=== PATIENT | female | born 1955 | race Two or more races ===

== ENCOUNTER 2016-11-24 08:40 | Emergency (ER) | payer BC, OTHER ==
[~2016-11-24] VITALS: Ht 157.5 cm; Wt 74.8 kg
--- NOTE | 2016-11-24 09:07 | NUR ---
pt is in room #2a. dr murry evaluated the pt.
[2016-11-24] MEDS ORDERED: GUAIFENESIN/CODEINE 5 ML LIQUID UDC PO ONE (09:45)
[2016-11-24] MEDS ORDERED: predniSONE 20 MG TABLET PO ONE (09:45)
[2016-11-24] MEDS ORDERED: predniSONE 20 MG TABLET ONE (09:54)
[2016-11-24] MEDS ORDERED: GUAIFENESIN/CODEINE 5 ML LIQUID UDC ONE (09:55)
[2016-11-24 10:20] VITALS: BP 136/75
--- NOTE | 2016-11-24 10:20 | NUR ---
pt was d/c to home. d/c instructions given tot he pt.
== END 2016-11-24 10:21 | disposition home or self-care (01) ==
LOC: ER 08:40
DX: J40 Bronchitis, not specified as acute or chronic (principal); J02.9 Acute pharyngitis, unspecified; I10 Essential (primary) hypertension; K21.9 Gastro-esophageal reflux disease without esophagitis; E03.9 Hypothyroidism, unspecified
CPT/HCPCS: 36415; 71010; 86403; 87070; 99285; A4663; J7512

== ENCOUNTER 2017-01-08 11:13 | Outpatient (CLI) | payer BC, OTHER ==
[2017-01-08 12:00] LABS: BASOPHILS # (AUTO) 0.1 K/uL (0.0-8.0); BASOPHILS % (AUTO) 0.8 % (0.0-2.0); EOSINOPHILS # (AUTO) 0.6 K/uL (0.0-0.7); EOSINOPHILS % (AUTO) 7.2 % (0.0-7.0); HEMOGLOBIN 13.3 G/DL (12.0-16.0); LYMPHOCYTES # (AUTO) 2.4 K/UL (0.8-4.8); LYMPHOCYTES % (AUTO) 30.8 % (20.5-51.5); MEAN CORPUSCULAR HEMOGLOBIN 27.8 UUG (27.0-31.0); MEAN CORPUSCULAR HGB CONC 32 g/dL (32.0-37.0); MONOCYTES # (AUTO) 0.4 K/UL (0.1-1.30); MONOCYTES % (AUTO) 4.7 % (0.0-11.0); NEUTROPHILS # (AUTO) 4.2 K/UL (1.8-8.9); NEUTROPHILS % (AUTO) 56.5 % (38.5-71.5); PLATELET COUNT (AUTO) 157 K/UL (150-450); RED BLOOD CELL COUNT(AUTO) 4.77 MIL/UL (4.2-5.4); WHITE BLOOD COUNT (AUTO) 7.7 K/UL (4.0-11.2)
[2017-01-08 12:15] LABS: CREATININE 0.8 mg/dL (0.6-1.3); POTASSIUM 3.8 mmol/L (3.5-5.1)
== END 2017-01-08 23:59 | disposition home or self-care (01) ==
LOC: XRAY 11:13
DX: R05 Cough (principal); L65.9 Nonscarring hair loss, unspecified
CPT/HCPCS: 36415; 71020; 83550; 85025

== ENCOUNTER 2017-03-09 09:00 | Outpatient (CLI) | payer BC, OTHER ==
[2017-03-09 10:29] LABS: BILIRUBIN,TOTAL 0.4 mg/dL (0.2-1.0); CREATININE 0.8 mg/dL (0.6-1.3); POTASSIUM 3.9 mmol/L (3.5-5.1); TOTAL PROTEIN, SERUM 8.1 g/dL (6.4-8.2)
[2017-03-09 10:39] LABS: THYROID STIMULATING HORMONE 2.784 mIU/mL (0.358-3.740)
[2017-03-10 08:10] LABS: CORTISOL 7.8 ug/dL (.)
[2017-03-10 13:12] LABS: INSULIN 13.3 uIU/mL (2.6-24.9)
== END 2017-03-09 23:59 | disposition home or self-care (01) ==
LOC: LAB 09:00
PROVIDERS: ATTEND Internal Medicine
DX: E03.9 Hypothyroidism, unspecified (principal); E11.9 Type 2 diabetes mellitus without complications; R53.83 Other fatigue
CPT/HCPCS: 36415; 82533; 83525; 84443

== ENCOUNTER 2017-08-26 07:08 | Outpatient (CLI) | payer BC, OTHER ==
[2017-08-26 08:31] LABS: BASOPHILS # (AUTO) 0.1 K/uL (0.0-8.0); BASOPHILS % (AUTO) 0.9 % (0.0-2.0); EOSINOPHILS # (AUTO) 0.2 K/uL (0.0-0.7); EOSINOPHILS % (AUTO) 3.5 % (0.0-7.0); HEMATOCRIT 42.1 % (31.2-41.9); HEMOGLOBIN 13.9 g/dL (10.9-14.3); LYMPHOCYTES # (AUTO) 2.1 K/uL (20.0-40.0); LYMPHOCYTES % (AUTO) 33.4 % (20.5-51.5); MEAN CORPUSCULAR HEMOGLOBIN 28.6 uug (24.7-32.8); MEAN CORPUSCULAR HGB CONC 33 g/dL (32.3-35.6); MEAN CORPUSCULAR VOLUME 86.6 fL (75.5-95.3); MONOCYTES # (AUTO) 0.3 K/uL (2.0-10.0); MONOCYTES % (AUTO) 5.6 % (0.0-11.0); NEUTROPHILS # (AUTO) 3.5 K/uL (1.8-8.9); NEUTROPHILS % (AUTO) 56.6 % (38.5-71.5); PLATELET COUNT (AUTO) 164 K/uL (179-408); RED BLOOD CELL COUNT(AUTO) 4.86 MIL/uL (3.63-4.92); WHITE BLOOD COUNT (AUTO) 6.2 K/uL (3.8-11.8)
[2017-08-26 08:56] LABS: BILIRUBIN,TOTAL 0.7 mg/dL (0.2-1.0); CREATININE 0.8 mg/dL (0.6-1.3); POTASSIUM 3.7 mmol/L (3.5-5.1); TOTAL PROTEIN, SERUM 8.1 g/dL (6.4-8.2); URIC ACID 4.6 mg/dL (2.6-6.0)
[2017-08-26 09:35] LABS: THYROID STIMULATING HORMONE 1.939 mIU/mL (0.358-3.740)
[2017-08-27 11:08] LABS: HEPATITIS B SURFACE AG Negative (Negative)
[2017-08-27 13:09] LABS: C-PEPTIDE, SERUM 3.1 ng/mL (1.1-4.4); VIT D, 25-HYDROXY 20.4 ng/mL (30.0-100.0)
== END 2017-08-26 23:59 | disposition home or self-care (01) ==
LOC: LAB 07:08
DX: M25.521 Pain in right elbow (principal); M25.541 Pain in joints of right hand
CPT/HCPCS: 36415; 82306; 84443; 84550; 84681; 85025; 85651; 86038; 86803; 87340

== ENCOUNTER → 2018-01-15 | Outpatient (CLI) | payer BC, OTHER ==
[2018-01-15 15:25] LABS: BASOPHILS # (AUTO) 0.1 K/uL (0.0-8.0); BASOPHILS % (AUTO) 0.8 % (0.0-2.0); EOSINOPHILS # (AUTO) 0.3 K/uL (0.0-0.7); EOSINOPHILS % (AUTO) 3.9 % (0.0-7.0); HEMATOCRIT 39.7 % (31.2-41.9); HEMOGLOBIN 13.2 g/dL (10.9-14.3); LYMPHOCYTES # (AUTO) 2.4 K/uL (20.0-40.0); LYMPHOCYTES % (AUTO) 29.9 % (20.5-51.5); MEAN CORPUSCULAR HEMOGLOBIN 28.7 uug (24.7-32.8); MEAN CORPUSCULAR HGB CONC 33 g/dL (32.3-35.6); MEAN CORPUSCULAR VOLUME 86.4 fL (75.5-95.3); MONOCYTES # (AUTO) 0.4 K/uL (2.0-10.0); MONOCYTES % (AUTO) 4.6 % (0.0-11.0); NEUTROPHILS # (AUTO) 4.9 K/uL (1.8-8.9); NEUTROPHILS % (AUTO) 60.8 % (38.5-71.5); PLATELET COUNT (AUTO) 171 K/uL (179-408); WHITE BLOOD COUNT (AUTO) 8.1 K/uL (3.8-11.8)
[2018-01-15 21:54] LABS: *RHEUMATOID FACTOR SCREEN NEGATIVE (NEGATIVE)
[2018-01-17 05:05] LABS: HEPATITIS B SURFACE AG Negative (Negative)
== END | disposition home or self-care (01) ==
LOC: LAB 14:29
DX: M19.90 Unspecified osteoarthritis, unspecified site (principal)
CPT/HCPCS: 36415; 85025; 85651; 86038; 86140; 86430; 87340

== ENCOUNTER 2018-01-23 08:30 | Emergency (ER) | payer BC, OTHER ==
[~2018-01-23] VITALS: Ht 154.9 cm; Wt 81.6 kg
[2018-01-23] MEDS ORDERED: LISINOPRIL (08:37)
[2018-01-23] MEDS ORDERED: AMLODIPINE (08:37)
--- NOTE | 2018-01-23 08:40 | NUR ---
ADMIT PT IN RM 2A FROM HOME WITH C/O DIZZINESS. SEEN AND EXAMINED BY DR CARSON WITH NEW ORDERS. ORTHOSTATIC BP DONE.
[2018-01-23] MEDS ORDERED: MECLIZINE HCL 25 MG TABLET PO ONE (08:45)
--- NOTE | 2018-01-23 08:45 | NUR ---
EKG DONE AT THE BEDSIDE ORDERED ALL LABS DRAWN. AND CT SCAN OF HEAD ORDERED.
[2018-01-23 08:55] LABS: BASOPHILS # (AUTO) 0.1 K/uL (0.0-8.0); BASOPHILS % (AUTO) 0.2 % (0.0-2.0); EOSINOPHILS % (AUTO) 0.1 % (0.0-7.0); HEMATOCRIT 39.2 % (31.2-41.9); HEMOGLOBIN 13.1 g/dL (10.9-14.3); LYMPHOCYTES # (AUTO) 1.2 K/uL (20.0-40.0); LYMPHOCYTES % (AUTO) 5.4 % (20.5-51.5); MEAN CORPUSCULAR HEMOGLOBIN 29.3 uug (24.7-32.8); MEAN CORPUSCULAR HGB CONC 33 g/dL (32.3-35.6); MONOCYTES # (AUTO) 0.5 K/uL (2.0-10.0); MONOCYTES % (AUTO) 2.3 % (0.0-11.0); NEUTROPHILS # (AUTO) 20.4 K/uL (1.8-8.9); PLATELET COUNT (AUTO) 178 K/uL (179-408); RED BLOOD CELL COUNT(AUTO) 4.46 MIL/uL (3.63-4.92); WHITE BLOOD COUNT (AUTO) 22.1 K/uL (3.8-11.8)
[2018-01-23 09:03] LABS: POTASSIUM 4.1 mmol/L (3.5-5.1)
[2018-01-23 09:08] LABS: BILIRUBIN,DIRECT 0.2 mg/dL (0.0-0.2); BILIRUBIN,TOTAL 0.9 mg/dL (0.2-1.0)
--- NOTE | 2018-01-23 09:15 | NUR ---
PT MEDICATED WITH ANTIVERT 25MG PO ORDERED. STILL A LITTLE BIT DIZZY.
[2018-01-23] MEDS ORDERED: MECLIZINE HCL 25 MG TABLET ONE (09:27)
[2018-01-23] MEDS ORDERED: predniSONE 50 MG TABLET PO ONE (10:30)
[2018-01-23] MEDS ORDERED: HYDROCODONE/APAP 5-325MG TABLET PO ONE (10:30)
--- NOTE | 2018-01-23 10:30 | NUR ---
Medicated with Norco5/325 i tab po for mild headache as ordered and Prednisone 50mg po per MD order.
[2018-01-23] MEDS ORDERED: HYDROCODONE/APAP 5-325MG TABLET ONE (10:39)
[2018-01-23] MEDS ORDERED: predniSONE 50 MG TABLET ONE (10:40)
[2018-01-23] MEDS ORDERED: IV NORMAL SALINE 1000 ML BAG IV ONE (12:00)
--- NOTE | 2018-01-23 12:05 | NUR ---
STARTED IV LINE ON THE LEFT BIG FINGER OF THE HAND G22. 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 SOMEWHAT DIFFICULT VEINS ON THE RIGHT ARM. STARTED IVF NS MD ORDERED.
[2018-01-23] MEDS ORDERED: IOHEXOL 350 100 ML INFUS..BTL ONE (12:18)
[2018-01-23] MEDS ORDERED: IV NORMAL SALINE 100 ML ONE (12:19)
[2018-01-23] MEDS ORDERED: SWABABLE VALVE TRANSFER SET EA MC ONE (12:19)
--- NOTE | 2018-01-23 12:30 | NUR ---
STARTED ANOTHER IV LINE ACCESS G20 ON THE [facility] FOR CTA WITH CONTRAST. DOWN FOR CT SCAN. CONDITION STABLE.
[2018-01-23] MEDS ORDERED: MORPHINE SULFATE 4 MG/1 ML DISP.SYRIN IV ONE (12:45)
[2018-01-23] MEDS ORDERED: ONDANSETRON IV *ER 4 MG/2 ML VIAL IV ONE (12:45)
--- NOTE | 2018-01-23 13:30 | NUR ---
PT BACK FRON CTA. STILL C/O BEY LEVEL 7 ON THE FRONTAL HEAD. MEDICATED WITH MORPHINE 4MG SLOW IVP AND FOLLOWED WITH ZOFRAN 4MG SLOW IVP FOR ANTI EMETIC. IVF IN PROGRESS.
[2018-01-23] MEDS ORDERED: MORPHINE SULFATE 4 MG/1 ML DISP.SYRIN ONE (13:33)
[2018-01-23] MEDS ORDERED: ONDANSETRON 4 MG/2 ML VIAL ONE (13:33)
--- NOTE | 2018-01-23 15:00 | NUR ---
PT IS SLEEPING COMFORTABLY AND RELIEVED OF BEY.
--- NOTE | 2018-01-23 16:20 | NUR ---
DISCHARGE INSTRUCTION GIVEN TO PT WITH GOOD UNDERSTANDING. IVF IS DISCONTINUED AND IV SITES ALSO REMOVED. CONDITION IS STABLE.
[2018-01-23 16:24] VITALS: BP 113/55
[2018-01-24 13:09] LABS: HEPATITIS A AB, TOTAL Positive (Negative); HEPATITIS B SURFACE AB Non Reactive (.); HEPATITIS B SURFACE AG Negative (Negative)
== END 2018-01-23 17:05 | disposition home or self-care (01) ==
LOC: ER 08:32
DX: R42 Dizziness and giddiness (principal); I10 Essential (primary) hypertension; K21.9 Gastro-esophageal reflux disease without esophagitis; E03.9 Hypothyroidism, unspecified; Z79.899 Other long term (current) drug therapy
CPT/HCPCS: 36415; 70030-TC; 70450; 70496; 85025; 85730; 86706; 86708; 86803; 87340; 93005; A4663; J2270; J2405; J3490; J7030; J7512; J8597; Q9967

== ENCOUNTER 2018-05-04 09:56 | Day surgery (SDC) | payer BC, OTHER ==
[~2018-05-04 09:56] MED LIST: AMLODIPINE; LISINOPRIL
[2018-05-04] MEDS ORDERED: LIDOCAINE HCL 2% 20 ML VIAL MC ONE (09:57)
[2018-05-04] MEDS ORDERED: PROPOFOL 200 MG/20 ML BOTTLE IV ONE (09:57)
[2018-05-04] MEDS ORDERED: IV LACTATED RINGERS SOLUTION 1,000 ML BAG IV ONE (09:57)
[2018-05-04 10:33] LABS: BASOPHILS # (AUTO) 0.1 K/uL (0.0-8.0); BASOPHILS % (AUTO) 1.2 % (0.0-2.0); EOSINOPHILS # (AUTO) 0.2 K/uL (0.0-0.7); EOSINOPHILS % (AUTO) 2.9 % (0.0-7.0); HEMATOCRIT 43.1 % (31.2-41.9); HEMOGLOBIN 14.2 g/dL (10.9-14.3); LYMPHOCYTES # (AUTO) 2.1 K/uL (20.0-40.0); LYMPHOCYTES % (AUTO) 26.6 % (20.5-51.5); MEAN CORPUSCULAR HEMOGLOBIN 28.7 uug (24.7-32.8); MEAN CORPUSCULAR HGB CONC 33 g/dL (32.3-35.6); MEAN CORPUSCULAR VOLUME 87.1 fL (75.5-95.3); MONOCYTES # (AUTO) 0.3 K/uL (2.0-10.0); MONOCYTES % (AUTO) 3.5 % (0.0-11.0); NEUTROPHILS # (AUTO) 5.1 K/uL (1.8-8.9); NEUTROPHILS % (AUTO) 65.8 % (38.5-71.5); PLATELET COUNT (AUTO) 185 K/uL (179-408); RED BLOOD CELL COUNT(AUTO) 4.95 MIL/uL (3.63-4.92); WHITE BLOOD COUNT (AUTO) 7.8 K/uL (3.8-11.8)
[2018-05-04 10:39] LABS: CREATININE 0.8 mg/dL (0.6-1.3); POTASSIUM 4.5 mmol/L (3.5-5.1)
[2018-05-04 10:43] LABS: *BILIRUBIN,URIN NEGATIVE (NEGATIVE); *BLOOD, URINE NEGATIVE (NEGATIVE); *CLARITY,URINE SLIGHTLY CLOUDY (CLEAR); *COLOR,URINE YELLOW (YELLOW); *KETONES,URINE NEGATIVE (NEGATIVE); *PROTEIN,URINE NEGATIVE (NEGATIVE); *UROBILINOGEN,URINE 0.2 E.U./dl (NORMAL); LEUKOCYTE ESTERASE ,URINE 1+ (NEGATIVE); NITRITE, URINE NEGATIVE (NEGATIVE); UGLUCOSE NEGATIVE (NEGATIVE)
[2018-05-04 10:47] LABS: BILIRUBIN,TOTAL 0.6 mg/dL (0.2-1.0); TOTAL PROTEIN, SERUM 8.3 g/dL (6.4-8.2)
[2018-05-04 10:52] LABS: BACTERIA,URINE NONE SEEN /HPF (NONE SEEN); SQUAMOUS EPITHELIAL CELL,UR MODERATE /HPF (NONE SEEN)
[2018-05-04 10:53] LABS: MUCUS,URINE MODERATE /LPF (0-FEW); TRANSITIONAL EPI CELLS,URINE FEW /LPF (NONE SEEN)
== END 2018-05-04 15:10 | disposition home or self-care (01) ==
LOC: DS 09:56
PROVIDERS: ATTEND Internal Medicine Gastroenterology
DX: K21.0 Gastro-esophageal reflux disease with esophagitis (principal); K44.9 Diaphragmatic hernia without obstruction or gangrene; Z80.0 Family history of malignant neoplasm of digestive organs; Z83.3 Family history of diabetes mellitus; Z82.49 Family history of ischemic heart disease and other diseases of the circulatory system; Z79.899 Other long term (current) drug therapy; E66.9 Obesity, unspecified; Z85.3 Personal history of malignant neoplasm of breast; Z98.890 Other specified postprocedural states; Z68.33 Body mass index [BMI] 33.0-33.9, adult; I10 Essential (primary) hypertension; E03.9 Hypothyroidism, unspecified
CPT/HCPCS: 36415; 71045; 85025; 85730; 88342; 93005; A4217; A4663; J3490; J7120

== ENCOUNTER 2018-10-20 06:49 | Outpatient (CLI) | payer BC, OTHER ==
[2018-10-20 09:54] LABS: BASOPHILS # (AUTO) 0.1 K/uL (0.0-8.0); BASOPHILS % (AUTO) 0.8 % (0.0-2.0); EOSINOPHILS # (AUTO) 0.2 K/uL (0.0-0.7); EOSINOPHILS % (AUTO) 2.7 % (0.0-7.0); HEMOGLOBIN 13.9 g/dL (10.9-14.3); LYMPHOCYTES # (AUTO) 2.2 K/uL (20.0-40.0); LYMPHOCYTES % (AUTO) 32.8 % (20.5-51.5); MEAN CORPUSCULAR HEMOGLOBIN 28.3 uug (24.7-32.8); MEAN CORPUSCULAR HGB CONC 33 g/dL (32.3-35.6); MEAN CORPUSCULAR VOLUME 85.7 fL (75.5-95.3); MONOCYTES # (AUTO) 0.3 K/uL (2.0-10.0); MONOCYTES % (AUTO) 4.2 % (0.0-11.0); NEUTROPHILS % (AUTO) 59.5 % (38.5-71.5); PLATELET COUNT (AUTO) 175 K/uL (179-408); WHITE BLOOD COUNT (AUTO) 6.7 K/uL (3.8-11.8)
[2018-10-20 10:00] LABS: BILIRUBIN,TOTAL 0.7 mg/dL (0.2-1.0); CREATININE 0.8 mg/dL (0.6-1.3); POTASSIUM 3.7 mmol/L (3.5-5.1); TOTAL PROTEIN, SERUM 8.1 g/dL (6.4-8.2)
[2018-10-20 10:04] LABS: *BILIRUBIN,URIN NEGATIVE (NEGATIVE); *BLOOD, URINE NEGATIVE (NEGATIVE); *CLARITY,URINE CLEAR (CLEAR); *COLOR,URINE YELLOW (YELLOW); *KETONES,URINE NEGATIVE (NEGATIVE); *UROBILINOGEN,URINE 0.2 E.U./dl (NORMAL); LEUKOCYTE ESTERASE ,URINE TRACE (NEGATIVE); NITRITE, URINE NEGATIVE (NEGATIVE); PH,URINE 5.5 (5.0-8.0); UGLUCOSE NEGATIVE (NEGATIVE)
[2018-10-20 10:08] LABS: THYROID STIMULATING HORMONE 2.539 mIU/mL (0.358-3.740)
[2018-10-20 10:32] LABS: RBC,URINE 0-3 /HPF (0-3)
[2018-10-20 10:33] LABS: BACTERIA,URINE FEW /HPF (NONE SEEN); MUCUS,URINE MODERATE /LPF (0-FEW); SQUAMOUS EPITHELIAL CELL,UR FEW /HPF (NONE SEEN)
== END 2018-10-20 23:59 | disposition home or self-care (01) ==
LOC: LAB 06:49
DX: I10 Essential (primary) hypertension (principal); E03.9 Hypothyroidism, unspecified
CPT/HCPCS: 84443; 85025; 86140; 87077; 87086

== ENCOUNTER 2019-01-05 08:52 | Emergency (ER) | payer BC, OTHER ==
[~2019-01-05] VITALS: Ht 154.9 cm; Wt 81.6 kg
--- NOTE | 2019-01-05 09:16 | NUR ---
PT WAS EVALUATED BY DR SINGH. PT WAS D/C'd TO HOME. D/C INSTRUCTIONS GIVEN TO THE PT.
[2019-01-05 09:19] VITALS: BP 132/78
== END 2019-01-05 09:20 | disposition home or self-care (01) ==
LOC: ER 08:52
DX: M79.644 Pain in right finger(s) (principal); I10 Essential (primary) hypertension; K21.9 Gastro-esophageal reflux disease without esophagitis; E03.9 Hypothyroidism, unspecified; Z91.040 Latex allergy status; Z79.899 Other long term (current) drug therapy
CPT/HCPCS: A4663

== ENCOUNTER 2019-04-05 06:55 | Outpatient (CLI) | payer BC, OTHER ==
[2019-04-05 09:17] LABS: BASOPHILS # (AUTO) 0.1 K/uL (0.0-8.0); BASOPHILS % (AUTO) 0.8 % (0.0-2.0); EOSINOPHILS # (AUTO) 0.3 K/uL (0.0-0.7); EOSINOPHILS % (AUTO) 4.1 % (0.0-7.0); HEMATOCRIT 44.2 % (31.2-41.9); HEMOGLOBIN 14.4 g/dL (10.9-14.3); LYMPHOCYTES # (AUTO) 2.4 K/uL (20.0-40.0); LYMPHOCYTES % (AUTO) 31.5 % (20.5-51.5); MEAN CORPUSCULAR HEMOGLOBIN 28.6 uug (24.7-32.8); MEAN CORPUSCULAR HGB CONC 33 g/dL (32.3-35.6); MEAN CORPUSCULAR VOLUME 88.1 fL (75.5-95.3); MONOCYTES # (AUTO) 0.4 K/uL (2.0-10.0); MONOCYTES % (AUTO) 5.3 % (0.0-11.0); NEUTROPHILS # (AUTO) 4.4 K/uL (1.8-8.9); NEUTROPHILS % (AUTO) 58.3 % (38.5-71.5); PLATELET COUNT (AUTO) 174 K/uL (179-408); RED BLOOD CELL COUNT(AUTO) 5.02 MIL/uL (3.63-4.92); WHITE BLOOD COUNT (AUTO) 7.5 K/uL (3.8-11.8)
[2019-04-05 09:39] LABS: BILIRUBIN,TOTAL 0.6 mg/dL (0.2-1.0); CREATININE 0.8 mg/dL (0.6-1.3); MAGNESIUM 2.1 mg/dL (1.8-2.4); POTASSIUM 3.9 mmol/L (3.5-5.1); TOTAL PROTEIN, SERUM 7.8 g/dL (6.4-8.2)
[2019-04-05 10:50] LABS: THYROID STIMULATING HORMONE 2.314 mIU/mL (0.358-3.740)
[2019-04-06 08:07] LABS: INSULIN 13.7 uIU/mL (2.6-24.9)
== END 2019-04-05 23:59 | disposition home or self-care (01) ==
LOC: LAB 06:55
DX: E03.9 Hypothyroidism, unspecified (principal); K21.9 Gastro-esophageal reflux disease without esophagitis; R51 Headache
CPT/HCPCS: 36415; 83525; 83550; 83735; 84443; 84480; 85025; 85651; 86140

== ENCOUNTER 2019-04-07 08:35 | Emergency (ER) | payer BC, OTHER ==
[~2019-04-07] VITALS: Ht 154.9 cm; Wt 81.6 kg
[2019-04-07] MEDS ORDERED: ASPIRIN EC 325 MG TABLET.DR PO SCH (09:00)
[2019-04-07] MEDS ORDERED: LISI-603 PO (09:07)
[2019-04-07] MEDS ORDERED: LEVOTHYROXINE (09:07)
[2019-04-07] MEDS ORDERED: AMLO10TA4 PO (09:07)
[2019-04-07 09:08] LABS: BASOPHILS # (AUTO) 0.1 K/uL (0.0-8.0); BASOPHILS % (AUTO) 0.8 % (0.0-2.0); EOSINOPHILS # (AUTO) 0.3 K/uL (0.0-0.7); EOSINOPHILS % (AUTO) 3.8 % (0.0-7.0); HEMATOCRIT 40.8 % (31.2-41.9); HEMOGLOBIN 13.4 g/dL (10.9-14.3); LYMPHOCYTES # (AUTO) 3.1 K/uL (20.0-40.0); MEAN CORPUSCULAR HEMOGLOBIN 28.9 uug (24.7-32.8); MEAN CORPUSCULAR HGB CONC 33 g/dL (32.3-35.6); MONOCYTES # (AUTO) 0.5 K/uL (2.0-10.0); MONOCYTES % (AUTO) 6.4 % (0.0-11.0); NEUTROPHILS # (AUTO) 4.4 K/uL (1.8-8.9); PLATELET COUNT (AUTO) 168 K/uL (179-408); RED BLOOD CELL COUNT(AUTO) 4.64 MIL/uL (3.63-4.92); WHITE BLOOD COUNT (AUTO) 8.4 K/uL (3.8-11.8)
[2019-04-07] MEDS ORDERED: ASPIRIN 81 MG TAB.CHEW ONE (09:11)
[2019-04-07 09:14] LABS: CREATININE 0.8 mg/dL (0.6-1.3); POTASSIUM 4.4 mmol/L (3.5-5.1)
--- NOTE | 2019-04-07 09:30 | NUR ---
PATIENT WAS SEEN BY MD. 12 LEAD EKG DONE. PT PLACED ON CONTINUOUS MONITOR. IV PLACED, LABS DRAWN
--- NOTE | 2019-04-07 10:09 | NUR ---
IV removed. Catheter intact and site benign. Pressure and 4x4 gauze applied to site. No bleeding noted.
--- NOTE | 2019-04-07 10:09 | NUR ---
DC AND FOLLOW UP INSTRUCTIONS GIVEN AND EXPLAINED TO PATIENT WHO STATES SHE UNDERSTANDS ALL INSTRUCTIONS INCLUDING MD RECOMENDED STRESS TEST.
== END 2019-04-07 10:10 | disposition home or self-care (01) ==
LOC: ER 08:35
DX: R07.9 Chest pain, unspecified (principal); I10 Essential (primary) hypertension; K21.9 Gastro-esophageal reflux disease without esophagitis; E03.9 Hypothyroidism, unspecified; E78.5 Hyperlipidemia, unspecified; Z91.040 Latex allergy status; Z79.899 Other long term (current) drug therapy
CPT/HCPCS: 36415; 70030-TC; 71045; 85025; 93005; A4663

== ENCOUNTER → 2020-03-09 | Outpatient (CLI) | payer BC, OTHER ==
[~2020-03-09] MED LIST changes: +AMLO10TA4 PO; -AMLODIPINE; +LEVOTHYROXINE; +LISI-603 PO; -LISINOPRIL
[2020-03-09 06:26] LABS: BASOPHILS # (AUTO) 0.1 K/uL (0.0-8.0); BASOPHILS % (AUTO) 0.8 % (0.0-2.0); EOSINOPHILS # (AUTO) 0.3 K/uL (0.0-0.7); EOSINOPHILS % (AUTO) 3.6 % (0.0-7.0); HEMOGLOBIN 14.8 g/dL (10.9-14.3); LYMPHOCYTES # (AUTO) 2.2 K/uL (20.0-40.0); LYMPHOCYTES % (AUTO) 28.8 % (20.5-51.5); MEAN CORPUSCULAR HEMOGLOBIN 28.3 uug (24.7-32.8); MEAN CORPUSCULAR HGB CONC 33 g/dL (32.3-35.6); MEAN CORPUSCULAR VOLUME 86.1 fL (75.5-95.3); MONOCYTES # (AUTO) 0.4 K/uL (2.0-10.0); MONOCYTES % (AUTO) 4.7 % (0.0-11.0); NEUTROPHILS # (AUTO) 4.8 K/uL (1.8-8.9); NEUTROPHILS % (AUTO) 62.1 % (38.5-71.5); PLATELET COUNT (AUTO) 174 K/uL (179-408); RED BLOOD CELL COUNT(AUTO) 5.22 MIL/uL (3.63-4.92); WHITE BLOOD COUNT (AUTO) 7.7 K/uL (3.8-11.8)
[2020-03-09 06:44] LABS: THYROID STIMULATING HORMONE 2.229 mIU/mL (0.358-3.740)
[2020-03-09 06:48] LABS: BILIRUBIN,TOTAL 0.8 mg/dL (0.2-1.0); CREATININE 0.9 mg/dL (0.6-1.3); MAGNESIUM 2.1 mg/dL (1.8-2.4); POTASSIUM 3.7 mmol/L (3.5-5.1); TOTAL PROTEIN, SERUM 8.2 g/dL (6.4-8.2); URIC ACID 5.5 mg/dL (2.6-6.0)
[2020-03-09 06:57] LABS: *BLOOD, URINE NEGATIVE (NEGATIVE); *CLARITY,URINE SLIGHTLY CLOUDY (CLEAR); *COLOR,URINE YELLOW (YELLOW); *KETONES,URINE NEGATIVE (NEGATIVE); *UROBILINOGEN,URINE 0.2 E.U./dl (NORMAL); LEUKOCYTE ESTERASE ,URINE TRACE (NEGATIVE); NITRITE, URINE NEGATIVE (NEGATIVE); PH,URINE 5.5 (5.0-8.0); UGLUCOSE NEGATIVE (NEGATIVE)
[2020-03-09 07:04] LABS: *BILIRUBIN,URIN 1+ (NEGATIVE)
[2020-03-09 14:33] LABS: BACTERIA,URINE NONE SEEN /HPF (NONE SEEN); RBC,URINE 0-3 /HPF (0-3); SQUAMOUS EPITHELIAL CELL,UR FEW /HPF (NONE SEEN); WBC,URINE 0-3 /HPF (0-3)
[2020-03-09 14:34] LABS: URINE AMORPHOUS URATE MODERATE /HPF
== END | disposition home or self-care (01) ==
LOC: LAB 05:42
DX: I10 Essential (primary) hypertension (principal); E03.9 Hypothyroidism, unspecified; K21.9 Gastro-esophageal reflux disease without esophagitis
CPT/HCPCS: 36415; 82306; 83550; 83735; 84443; 84480; 84550; 85025; 85651; 86140

== ENCOUNTER 2020-09-01 10:05 | Inpatient (IN) | payer BC, OTHER ==
[~2020-09-01] VITALS: Ht 154.9 cm; Wt 81.6 kg
[~2020-09-01 10:05] MED LIST changes: -LISI-603 PO; +LISI20TA30 PO
--- NOTE | 2020-09-01 10:22 | NUR ---
at bedside for assessment
--- NOTE | 2020-09-01 11:19 | NUR ---
Lab noted drawing blood at this time
[2020-09-01 11:26] LABS: BASOPHILS # (AUTO) 0.1 K/uL (0.0-8.0); BASOPHILS % (AUTO) 0.8 % (0.0-2.0); EOSINOPHILS # (AUTO) 0.3 K/uL (0.0-0.7); EOSINOPHILS % (AUTO) 3.7 % (0.0-7.0); LYMPHOCYTES # (AUTO) 1.8 K/uL (20.0-40.0); LYMPHOCYTES % (AUTO) 23.1 % (20.5-51.5); MEAN CORPUSCULAR HEMOGLOBIN 28.6 uug (24.7-32.8); MEAN CORPUSCULAR HGB CONC 33 g/dL (32.3-35.6); MONOCYTES # (AUTO) 0.4 K/uL (2.0-10.0); MONOCYTES % (AUTO) 5.7 % (0.0-11.0); NEUTROPHILS # (AUTO) 5.1 K/uL (1.8-8.9); NEUTROPHILS % (AUTO) 66.7 % (38.5-71.5); PLATELET COUNT (AUTO) 173 K/uL (179-408); RED BLOOD CELL COUNT(AUTO) 4.88 MIL/uL (3.63-4.92); WHITE BLOOD COUNT (AUTO) 7.6 K/uL (3.8-11.8)
[2020-09-01] MEDS ORDERED: MECLIZINE HCL 25 MG TABLET ONE (11:30)
[2020-09-01] MEDS ORDERED: MECLIZINE HCL 25 MG TABLET PO ONE (11:30)
[2020-09-01 11:33] LABS: CREATININE 0.9 mg/dL (0.6-1.3)
[2020-09-01 11:38] LABS: *BILIRUBIN,URIN NEGATIVE (NEGATIVE); *BLOOD, URINE NEGATIVE (NEGATIVE); *CLARITY,URINE CLEAR (CLEAR); *COLOR,URINE YELLOW (YELLOW); *KETONES,URINE NEGATIVE (NEGATIVE); *UROBILINOGEN,URINE 0.2 E.U./dl (NORMAL); LEUKOCYTE ESTERASE ,URINE NEGATIVE (NEGATIVE); NITRITE, URINE NEGATIVE (NEGATIVE); UGLUCOSE NEGATIVE (NEGATIVE)
[2020-09-01 11:38] LABS: BILIRUBIN,DIRECT 0.1 mg/dL (0.0-0.2); BILIRUBIN,TOTAL 0.4 mg/dL (0.2-1.0); TOTAL PROTEIN, SERUM 7.8 g/dL (6.4-8.2)
[2020-09-01 11:53] LABS: *AMPHETAMINE, URINE NEGATIVE (NEGATIVE); *CANNABINOID, URINE NEGATIVE (NEGATIVE); *COCCAINE, URINE NEGATIVE (NEGATIVE); *OPIATE, URINE NEGATIVE (NEGATIVE); *PHENCYCLIDINE SCREEN,URINE NEGATIVE (NEGATIVE)
[2020-09-01 12:10] LABS: THYROID STIMULATING HORMONE 1.143 mIU/mL (0.358-3.740)
[2020-09-01] MEDS ORDERED: ASPIRIN 325 MG TABLET PO ONE (13:00)
[2020-09-01] MEDS ORDERED: Z GUARD REMEDY PASTE 57 GM TUBE TOP PRN (14:30)
[2020-09-01] MEDS ORDERED: MAGNESIUM HYDROXIDE 30 ML LIQUID UDC PO PRN (14:30)
[2020-09-01] MEDS ORDERED: ACETAMINOPHEN 325 MG TABLET PO PRN (14:30)
[2020-09-01] MEDS ORDERED: ONDANSETRON 4 MG/2 ML VIAL IV PRN (14:30)
--- NOTE | 2020-09-01 15:21 | NUR ---
Report given to Kary GUTHRIE
--- NOTE | 2020-09-01 16:23 | NUR ---
Pt. admitted to tle , under care of Dr. Krause, room 321 Belongs List completed and all belongings sent Addendum: 09/01/20 at 1624 by CHUCK tele floor
[2020-09-01 16:30] VITALS: BP 135/67
--- NOTE | 2020-09-01 16:30 | NUR ---
ADMITTED FROM HOME VIA ER A 64 YO FEMALE WITH ADMITTING DX OF DIZZINESS X2 DAYS ALERT AND ORIENTED X3, DINES DIZZINESS UPON ADMISSION TO THE ROOM. ROUTINE ADMISSION ASSESSMENT INITIATE, SR ON MONITOR. WILL CONTINUE TELE MONITORING
[2020-09-01 19:44] VITALS: BP 137/57
--- NOTE | 2020-09-01 21:02 | NUR ---
Patient in bed awake and able to make needs known.Denies Dizziness , no h/a .No s/s of distress noted.ON Ra. Saturating well.Reinforced teaching to use call light for assistance. Continue safety measures.Fall precaution implemented.Bed low in locked position.Call light with in reach.Will continue to monitor.
[2020-09-02 00:05] VITALS: BP 140/63
[2020-09-02 04:31] VITALS: BP 145/63
--- NOTE | 2020-09-02 06:27 | NUR ---
Patient slept well. C/o mild dizziness when getting out of bed and c/o headache this morning.Medicated with Tylenol with good result.Will endorsed to oncoming shift.
[2020-09-02 07:36] LABS: BASOPHILS # (AUTO) 0.1 K/uL (0.0-8.0); BASOPHILS % (AUTO) 0.8 % (0.0-2.0); EOSINOPHILS # (AUTO) 0.4 K/uL (0.0-0.7); EOSINOPHILS % (AUTO) 5.2 % (0.0-7.0); HEMATOCRIT 42.1 % (31.2-41.9); HEMOGLOBIN 13.8 g/dL (10.9-14.3); LYMPHOCYTES # (AUTO) 1.9 K/uL (20.0-40.0); LYMPHOCYTES % (AUTO) 26.4 % (20.5-51.5); MEAN CORPUSCULAR HEMOGLOBIN 28.4 uug (24.7-32.8); MEAN CORPUSCULAR HGB CONC 33 g/dL (32.3-35.6); MEAN CORPUSCULAR VOLUME 86.6 fL (75.5-95.3); MONOCYTES # (AUTO) 0.4 K/uL (2.0-10.0); MONOCYTES % (AUTO) 5.1 % (0.0-11.0); NEUTROPHILS # (AUTO) 4.5 K/uL (1.8-8.9); NEUTROPHILS % (AUTO) 62.5 % (38.5-71.5); PLATELET COUNT (AUTO) 174 K/uL (179-408); RED BLOOD CELL COUNT(AUTO) 4.86 MIL/uL (3.63-4.92); WHITE BLOOD COUNT (AUTO) 7.1 K/uL (3.8-11.8)
[2020-09-02 07:37] LABS: BILIRUBIN,TOTAL 0.8 mg/dL (0.2-1.0); CREATININE 0.8 mg/dL (0.6-1.3); MAGNESIUM 2.3 mg/dL (1.8-2.4); PHOSPHOROUS 3.6 mg/dL (2.5-4.9); POTASSIUM 4.1 mmol/L (3.5-5.1); TOTAL PROTEIN, SERUM 7.3 g/dL (6.4-8.2)
--- NOTE | 2020-09-02 08:00 | NUR ---
Discussed plan of care with patient re: fall precaution- notify nursing when getting oob and to not stand up straight from laying position. Pt agreeable with plan of care. Call light is within reach.
[2020-09-02 08:05] VITALS: BP 132/65
[2020-09-02] MEDS: AMLODIPINE 10 MG TABLET PO SCH (08:16)
[2020-09-02] MEDS: LISINOPRIL 20 MG TABLET PO SCH (08:17)
--- NOTE | 2020-09-02 09:00 | NUR ---
No deficit noted or weakness noted on UE's and LE's. Smile equal and no drift noted.
[2020-09-02 11:28] VITALS: BP 132/51
[2020-09-02] MEDS ORDERED: MECLIZINE HCL 25 MG TABLET PO PRN (12:00)
[2020-09-02] MEDS ORDERED: IBUPROFEN 400 MG TABLET PO PRN (12:45)
[2020-09-02] MEDS ORDERED: MECLIZINE HCL 25 MG TABLET PO SCH (14:00)
[2020-09-02 15:43] VITALS: BP 113/59
[2020-09-02] MEDS ORDERED: IOHEXOL 350 100 ML INFUS..BTL ONE (15:47)
[2020-09-02] MEDS ORDERED: IV NORMAL SALINE 250 ML IV ONE (15:47)
[2020-09-02] MEDS ORDERED: SWABABLE VALVE TRANSFER SET EA MC ONE (15:47)
--- NOTE | 2020-09-02 18:00 | NUR ---
Pt tolerated CTA head awaiting results. Pt denies any c/o pain.
--- NOTE | 2020-09-02 19:30 | NUR ---
RECEIVED PT AWAKE, ALERT AND ORIENTEDX4. PT IV INTACT.PT IN NO ACUTE DISTRESS. SAFETY AND COMFORT PROVIDED. WILL CONTINUE TO MONITOR.
[2020-09-02 20:35] VITALS: BP 125/64
[2020-09-02] MEDS: AMOXICILLIN-CLAVUL 875-125MG TABLET PO SCH (20:46)
[2020-09-03 00:21] VITALS: BP 129/62
[2020-09-03 04:33] VITALS: BP 117/60
--- NOTE | 2020-09-03 06:20 | NUR ---
PT SLEPT INTERMITTENTLY. PT IN NO ACUTE DISTRESS. IV INTACT. PRESCRIBED MEDICATION GIVEN AND PT TOLERATED IT WELL. SAFETY AND COMFORT PROVIDED. WILL ENDORSE TO INCOMING NURSE FOR CONTINUITY OF CARE.
[2020-09-03 08:00] VITALS: BP 123/61
[2020-09-03] MEDS: AMOXICILLIN-CLAVUL 875-125MG TABLET PO SCH (08:14)
[2020-09-03] MEDS: LISINOPRIL 20 MG TABLET PO SCH (08:14)
[2020-09-03] MEDS: AMLODIPINE 10 MG TABLET PO SCH (08:14)
[2020-09-03 11:38] VITALS: BP 128/64
[2020-09-03 15:18] VITALS: BP 116/68
[2020-09-03] MEDS ORDERED: AMOX500C2 PO (16:16)
--- NOTE | 2020-09-03 17:15 | NUR ---
PATIENT TO BE DISCHARGED TODAY. VSS. IV REMOVED, NO S/S OF BLEEDING NOTED. DISCUSSED DISCHARGE EDUCATION WITH PATIENT, VERBALIZED UNDERSTANDING. NEW PRESCRIPTION SENT ELECTRONICALLY TO PATIENT'S PREFERRED PHARMACY. BELONGINGS AT BEDSIDE, BELONGINGS LIST SIGNED. AWAITING PRIVATE TRANSPORT. WILL BE PICKED UP BY . DENIES DIZZINESS OR PAIN. NO S/S OF DISTRESS OR SOB NOTED AT THIS TIME.
--- NOTE | 2020-09-03 17:32 | NUR ---
PATIENT WHEELED DOWN TO LOBBY. ID BAND REMOVED. PICKED UP BY .
== END 2020-09-03 17:33 | disposition home or self-care (01) | DRG 74 ==
LOC: ER 10:05 → TELE3 15:29 → MEDSURG3 09-03 09:25
PROVIDERS: ADMIT Internal Medicine; ATTEND Internal Medicine
DX: G90.8 Other disorders of autonomic nervous system (principal); H66.91 Otitis media, unspecified, right ear; I10 Essential (primary) hypertension; E03.9 Hypothyroidism, unspecified; R42 Dizziness and giddiness; Z20.822 Contact with and (suspected) exposure to COVID-19
CPT/HCPCS: 36415; 70030-TC; 70450; 70496; 83735; 84100; 84443; 85025; 85730; 93005; 93307; A4663; G0378; J2405; J7050; J8597; Q9967

== ENCOUNTER 2021-02-12 14:07 | Outpatient (CLI) | payer BC, OTHER ==
[~2021-02-12 14:07] MED LIST changes: +AMOX500C2 PO
== END 2021-02-12 23:59 | disposition home or self-care (01) ==
LOC: XRAY 14:07
PROVIDERS: ATTEND Internal Medicine
DX: M16.0 Bilateral primary osteoarthritis of hip (principal)
CPT/HCPCS: 73502

== ENCOUNTER → 2021-05-22 | Outpatient (CLI) | payer BC, OTHER ==
[2021-05-22 06:49] LABS: HEMATOCRIT 41.4 % (31.2-41.9); MEAN CORPUSCULAR HEMOGLOBIN 28.9 uug (24.7-32.8); PLATELET COUNT (AUTO) 169 K/uL (179-408)
[2021-05-22 07:31] LABS: THYROID STIMULATING HORMONE 2.688 mIU/mL (0.358-3.740)
[2021-05-22 07:37] LABS: *BILIRUBIN,URIN NEGATIVE (NEGATIVE); *BLOOD, URINE NEGATIVE (NEGATIVE); *CLARITY,URINE CLEAR (CLEAR); *COLOR,URINE YELLOW (YELLOW); *KETONES,URINE NEGATIVE (NEGATIVE); *UROBILINOGEN,URINE 0.2 E.U./dl (NORMAL); LEUKOCYTE ESTERASE ,URINE 2+ (NEGATIVE); NITRITE, URINE NEGATIVE (NEGATIVE); PH,URINE 5.5 (5.0-8.0); UGLUCOSE NEGATIVE (NEGATIVE)
[2021-05-22 08:05] LABS: BILIRUBIN,TOTAL 0.7 mg/dL (0.2-1.0); CREATININE 0.9 mg/dL (0.6-1.3); MAGNESIUM 2.4 mg/dL (1.8-2.4); POTASSIUM 3.9 mmol/L (3.5-5.1); TOTAL PROTEIN, SERUM 8.4 g/dL (6.4-8.2)
[2021-05-22 12:44] LABS: BACTERIA,URINE FEW /HPF (NONE SEEN); MUCUS,URINE FEW /LPF (0-FEW); RBC,URINE 0-3 /HPF (0-3); SQUAMOUS EPITHELIAL CELL,UR FEW /HPF (NONE SEEN)
== END | disposition home or self-care (01) ==
LOC: LAB 06:26
PROVIDERS: ATTEND Internal Medicine
DX: I10 Essential (primary) hypertension (principal); E78.5 Hyperlipidemia, unspecified; E03.9 Hypothyroidism, unspecified
CPT/HCPCS: 36415; 82306; 83550; 83735; 84443; 85025; 85651; 86140; 87086

== ENCOUNTER 2021-06-04 06:38 | Outpatient (CLI) | payer BC, OTHER | END 2021-06-04 23:59 | disposition home or self-care (01) | LOC: LAB 06:38 | PROVIDERS: ATTEND Internal Medicine | DX: D89.2 Hypergammaglobulinemia, unspecified (principal) ==

== ENCOUNTER 2021-07-23 11:24 | Outpatient (CLI) | payer BC, OTHER ==
[2021-07-23 14:40] LABS: HEMATOCRIT 40.7 % (31.2-41.9); MEAN CORPUSCULAR HEMOGLOBIN 28.7 uug (24.7-32.8); MEAN CORPUSCULAR VOLUME 86.6 fL (75.5-95.3); PLATELET COUNT (AUTO) 174 K/uL (179-408)
[2021-07-23 14:59] LABS: BILIRUBIN,TOTAL 0.4 mg/dL (0.2-1.0); CREATININE 0.8 mg/dL (0.6-1.3); POTASSIUM 3.6 mmol/L (3.5-5.1); TOTAL PROTEIN, SERUM 7.8 g/dL (6.4-8.2)
[2021-07-24 14:28] LABS: *URINE TOTAL PROTEIN RANDOM 8.2 mg/dL (<150/24HR)
[2021-07-25 13:06] LABS: *PEU ALBUMIN, UR 29.9 % (.); *PEU PROTEIN, TOTAL, UR 18.9 mg/dL (Not Estab.); *PEUALPHA-1-GLOBULIN, UR 4.3 % (.); *PEUBETA GLOBULIN, UR 34.7 % (.)
== END 2021-07-23 23:59 | disposition home or self-care (01) ==
LOC: LAB 11:24
PROVIDERS: ATTEND Internal Medicine
DX: D89.2 Hypergammaglobulinemia, unspecified (principal); D17.21 Benign lipomatous neoplasm of skin and subcutaneous tissue of right arm
CPT/HCPCS: 73200; 83615; 84156; 85025

== ENCOUNTER 2022-01-21 12:10 | Outpatient (CLI) | payer BC, OTHER | END 2022-01-21 23:59 | disposition home or self-care (01) | LOC: RAD 12:10 | PROVIDERS: ATTEND Internal Medicine | DX: R05.9 Cough, unspecified (principal) | CPT/HCPCS: 71046 ==

== ENCOUNTER 2022-05-06 10:53 | Emergency (ER) | payer BC, OTHER ==
[~2022-05-06] VITALS: Ht 154.9 cm; Wt 81.6 kg
--- NOTE | 2022-05-06 13:00 | NUR ---
Pt arrived with c/o bilateral pain on the lower extremities. Pt stated that she slipped and hurt her right lower extremity on 03/29 and slipped again and hurt her left lower extremity on 04/12, stated that pain is 9/10 when performing adl's and 5/10 during inactivity. Pt is stable, v/s are wnl. No bruising or pain during palpation on both sites. Seen by ELAINA for MSE.
[2022-05-06] MEDS ORDERED: HYDROCODONE/APAP 5-325MG TABLET ONE (13:41)
[2022-05-06] MEDS ORDERED: IBUPROFEN 400 MG TABLET ONE (13:41)
[2022-05-06] MEDS ORDERED: HYDROCODONE/APAP 5-325MG TABLET PO ONE (13:45)
[2022-05-06] MEDS ORDERED: IBUPROFEN 400 MG TABLET PO ONE (13:45)
[2022-05-06] MEDS ORDERED: CYCL5TAB PO (13:55)
[2022-05-06] MEDS ORDERED: ACET-2154 PO (13:55)
--- NOTE | 2022-05-06 14:05 | NUR ---
Patient discharged to home in stable condition. Written and verbal after care instructions given. Patient verbalizes understanding of instructions. Stressed follow up or return to ER for worsening s/s.
[2022-05-06 14:18] VITALS: BP 125/80
== END 2022-05-06 14:05 | disposition home or self-care (01) ==
LOC: ER 10:53
DX: S76.912A Strain of unspecified muscles, fascia and tendons at thigh level, left thigh, initial encounter (principal); S76.911A Strain of unspecified muscles, fascia and tendons at thigh level, right thigh, initial encounter; W01.0XXA Fall on same level from slipping, tripping and stumbling without subsequent striking against object, initial encounter; Y92.239 Unspecified place in hospital as the place of occurrence of the external cause; Y99.0 Civilian activity done for income or pay; I10 Essential (primary) hypertension; E03.9 Hypothyroidism, unspecified; K21.9 Gastro-esophageal reflux disease without esophagitis; Z91.040 Latex allergy status; Z79.899 Other long term (current) drug therapy
CPT/HCPCS: A4663

== ENCOUNTER 2022-09-16 05:46 | Outpatient (CLI) | payer BC, OTHER ==
[~2022-09-16 05:46] MED LIST changes: +ACET-2154 PO; +CYCL5TAB PO
[2022-09-16 08:43] LABS: HEMATOCRIT 41.9 % (31.2-41.9); MEAN CORPUSCULAR VOLUME 85.4 fL (75.5-95.3); PLATELET COUNT (AUTO) 180 K/uL (179-408)
[2022-09-16 08:45] LABS: IRON, SERUM 56 ug/dL (50-175)
[2022-09-16 08:56] LABS: *BILIRUBIN,URIN NEGATIVE (NEGATIVE); *BLOOD, URINE NEGATIVE (NEGATIVE); *CLARITY,URINE CLEAR (CLEAR); *COLOR,URINE YELLOW (YELLOW); *KETONES,URINE NEGATIVE (NEGATIVE); *UROBILINOGEN,URINE 0.2 E.U./dl (NORMAL); NITRITE, URINE NEGATIVE (NEGATIVE); PH,URINE 5.5 (5.0-8.0); UGLUCOSE NEGATIVE (NEGATIVE)
[2022-09-16 09:05] LABS: ALANINE AMINOTRANSFERASE 29 U/L (14-59); ALKALINE PHOSPHATASE 138 U/L (50-136); ASPARTATE AMINOTRANSFERASE 22 U/L (15-37); BILIRUBIN,TOTAL 0.8 mg/dL (0.2-1.0); CARBON DIOXIDE 26 mmol/L (21-32); CHLORIDE 106 mmol/L (98-107); CHOLESTEROL 168 mg/dL (<200); CREATININE 0.8 mg/dL (0.6-1.3); FERRITIN 23 ng/mL (8-252); GLUCOSE 112 mg/dL (74-106); HDL CHOLESTEROL 55 mg/dL (40-60); POTASSIUM 3.7 mmol/L (3.5-5.1); TRIGLYCERIDES 93 MG/DL (30-150); UREA NITROGEN, BLOOD 13 mg/dL (7-18)
[2022-09-16 09:35] LABS: CREATINE KINASE, TOTAL 73 U/L (26-192)
[2022-09-16 09:40] LABS: LEUKOCYTE ESTERASE ,URINE TRACE (NEGATIVE)
[2022-09-16 10:11] LABS: BACTERIA,URINE NONE SEEN /HPF (NONE SEEN); RBC,URINE NONE SEEN /HPF (0-3); SQUAMOUS EPITHELIAL CELL,UR NONE SEEN /HPF (NONE SEEN); WBC,URINE NONE SEEN /HPF (0-3)
[2022-09-16 14:50] LABS: THYROID STIMULATING HORMONE 2.806 mIU/mL (0.358-3.740)
[2022-09-17 08:07] LABS: *MICROALBUMIN, UR 15.5 ug/mL (Not Estab.); CREATININE, URINE 269.3 mg/dL (Not Estab.)
== END 2022-09-16 23:59 | disposition home or self-care (01) ==
LOC: LAB 05:46
PROVIDERS: ATTEND Internal Medicine
DX: I10 Essential (primary) hypertension (principal); E55.9 Vitamin D deficiency, unspecified; E03.9 Hypothyroidism, unspecified
CPT/HCPCS: 36415; 82043; 82306; 82570; 83550; 83735; 84443; 84480; 84550; 85025; 85651; 86140

== ENCOUNTER 2023-01-10 08:05 | Outpatient (CLI) | payer BC, OTHER ==
[2023-01-10 08:33] LABS: BILIRUBIN,TOTAL 0.9 mg/dL (0.2-1.0); CREATININE 0.8 mg/dL (0.6-1.3); POTASSIUM 3.8 mmol/L (3.5-5.1); TOTAL PROTEIN, SERUM 7.8 g/dL (6.4-8.2)
== END 2023-01-10 23:59 | disposition home or self-care (01) ==
LOC: LAB 08:05
PROVIDERS: ATTEND Internal Medicine Gastroenterology
DX: Z12.11 Encounter for screening for malignant neoplasm of colon (principal)
CPT/HCPCS: 36415; 85730